=== PATIENT | female | born 1965 | race Caucasian/White ===

== ENCOUNTER 2023-08-20 10:30 | Outpatient (AMB) | payer OTHER, SELFPAY ==
--- NOTE | 2023-08-20 10:31 | MHC.PC.OV ---
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 1. Little interest or pleasure in doing things: not at all 2. Feeling down, depressed, or hopeless: not at all 3. Trouble falling or staying asleep, or sleeping too much: not at all 4. Feeling tired or having little energy: not at all 5. Poor appetite or overeating: not at all 6. Feeling bad about yourself - or that you are a failure or have let yourself or your family down: not at all 7. Trouble concentrating on things, such as reading the newspaper or watching television: not at all 8. Moving or speaking so slowly that other people could have noticed. Or the opposite - being so fidgety or restless that you have been moving around a lot more than usual: not at all 9. Thoughts that you would be better off or of hurting yourself in some way: not at all Total score: 0 Depression Screening Interpretation: Negative Depression Screening Done: Yes 81432 - PHQ-9 Billing: Yes Source: Developed by Drs. Ji Giang, Christin Mueller, Bay Kim and colleagues, with an educational judy from [employer]. Thrive Questionnaire Date Thrive assessed: 08/20/23 I am a: Patient What is your living situation today?: I have a steady place to live Within the past 12 months, did the food you bought not last and you didn't have the money to get more?: Never true Within the past 12 months, did you worry whether your food would run out before you got money to buy more?: Never true Do you have trouble paying for medicines?: No Do you have trouble getting transportation to medical appointments?: No Do you have trouble paying your heating and electricity bill?: No Do you have trouble taking care of your child, family member or friend?: No Do you have trouble with day-to-day activities such as bathing, preparing meals, shopping, managing finances, etc.?: No Are you currently unemployed and looking for a job?: No Are you interested in more education?: No Please select the resources that you would like help with: None Currently or been in a relationship where the following occur: no concerns reported THRIVE Score: 0 AUDIT C Alcohol Use Questionnaire (AUDIT-C) 1. How often do you have a drink containing alcohol?: Monthly or less 2. How many drinks containing alcohol do you have on a typical day when you are drinking?: 1 or 2 3. How often do you have six or more drinks on one occasion?: Never Total Score: 1 SHAUN-7 AMB Questionnaire SHAUN-7 Date SHAUN - 7 assessed: 08/20/23 Feeling nervous, anxious, or on edge: 0 = Not at all Not being able to stop or control worryin = Not at all Worrying too much about different things: 0 = Not at all Trouble relaxin = Not at all Being so restless that it is hard to sit still: 0 = Not at all Becoming easily annoyed or irritable: 0 = Not at all Feeling afraid as if something awful might happen: 0 = Not at all Total SHAUN-7 score (0-4 normal; 5-9 mild; 10-14 moderate; 15-21 severe): 0 Source: Developed by Drs. Ji Giang, Christin Mueller, Bay Kim and colleagues, with an educational judy from [employer]. SHAUN-7 Assessment Billing SHAUN-7 Assessment Tool: SHAUN-7 Assessment 71995 Physical exam (Primary Care) BMI result Body Mass Index 25.1 PHQ-9: PHQ-9 Score PHQ-9: Total score 0 08/20/23 10:52 Depression Screening Interpretation: Negative Thrive Assessment: Date of Thrive Assessment Date Thrive assessed 08/20/23 08/20/23 10:52 Currently or been in a relationship where the following occur: no concerns reported Assessment and Plan Assessment & Plan Orders: Orders MM screening mammo BI Today Z12.31 - Encounter for screening mammogram for malignant neoplasm of breast Coding Additional Codes SHAUN-7 Assessment Billing - SHAUN-7 Assessment Tool: SHAUN-7 Assessment 23217 ([id number])
[2023-08-20 10:44] VITALS: BP 120/78; PULSE 78; O2SAT 99; BMI 25.1
--- NOTE | 2023-08-20 11:01 | A.OFFPC_ITS ---
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 Technician Required: No Accompanied by: Self / Same As Patient Allergies No Known Allergies [No Known Allergies*] Allergy (Verified 08/20/23 11:09) Medication List - Last Reconciled 08/20/23 by Arthur Webster PA-C No Known Home Meds Tobacco use date assessed: 08/20/23 Dental Screening Dental Screen Date: 08/20/23 Did you have a dental visit in the last 12 months?: Yes Did you have a dental problem in the last 6 months where you did not have access to dental care?: No Was dental information given to patient?: Patient has dentist HPI READING PROFESSOR, last seen 2019 [facility] HPI Details Patient is a 58-year-old female here today for a new patient visit. Has not been seen since 2018. She has no significant past medical history. vaccine : needs Tdap. Declines flu vaccine. 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 Mammo: goes to [facility] for her mammo Vaccines: Needs up-to-date Tdap, still considering, declines flu, COVID, shingles at this time. Colonoscopy: Done [id number]. Needs colon cancer screening- she is considering repeat colonoscopy in near future [facility] Family History Father Lymphoma Mother Sepsis Social History (Updated 08/20/23 @ 11:27 by Arthur Webster PA-C) Housing: House Alcohol intake: current Alcohol intake frequency: holidays/special occasions only Patient Tobacco Use Status: Never used Tobacco e-Cigarette/Vaping Use: Never Used service: No Current occupational status: employed Current occupation: [employer] Cognitive needs: No Hearing needs: No Vision needs: No Questionnaire PHQ-9 Over the last 2 weeks, how often have you been bothered by any of the following problems? 1. Little interest or pleasure in doing things: not at all 2. Feeling down, depressed, or hopeless: not at all 3. Trouble falling or staying asleep, or sleeping too much: not at all 4. Feeling tired or having little energy: not at all 5. Poor appetite or overeating: not at all 6. Feeling bad about yourself - or that you are a failure or have let yourself or your family down: not at all 7. Trouble concentrating on things, such as reading the newspaper or watching television: not at all 8. Moving or speaking so slowly that other people could have noticed. Or the opposite - being so fidgety or restless that you have been moving around a lot more than usual: not at all 9. Thoughts that you would be better off or of hurting yourself in some way: not at all Total score: 0 Depression Screening Interpretation: Negative Depression Screening Done: Yes 44735 - PHQ-9 Billing: Yes Source: Developed by Drs. Ji Giang, Christin Mueller, Bay Kim and colleagues, with an educational judy from [employer]. Thrive Questionnaire Date Thrive assessed: 08/20/23 I am a: Patient What is your living situation today?: I have a steady place to live Within the past 12 months, did the food you bought not last and you didn't have the money to get more?: Never true Within the past 12 months, did you worry whether your food would run out before you got money to buy more?: Never true Do you have trouble paying for medicines?: No Do you have trouble getting transportation to medical appointments?: No Do you have trouble paying your heating and electricity bill?: No Do you have trouble taking care of your child, family member or friend?: No Do you have trouble with day-to-day activities such as bathing, preparing meals, shopping, managing finances, etc.?: No Are you currently unemployed and looking for a job?: No Are you interested in more education?: No Please select the resources that you would like help with: None Currently or been in a relationship where the following occur: no concerns reported THRIVE Score: 0 AUDIT C Alcohol Use Questionnaire (AUDIT-C) 1. How often do you have a drink containing alcohol?: Monthly or less 2. How many drinks containing alcohol do you have on a typical day when you are drinking?: 1 or 2 3. How often do you have six or more drinks on one occasion?: Never Total Score: 1 SHAUN-7 AMB Questionnaire SHAUN-7 Date SHAUN - 7 assessed: 08/20/23 Feeling nervous, anxious, or on edge: 0 = Not at all Not being able to stop or control worryin = Not at all Worrying too much about different things: 0 = Not at all Trouble relaxin = Not at all Being so restless that it is hard to sit still: 0 = Not at all Becoming easily annoyed or irritable: 0 = Not at all Feeling afraid as if something awful might happen: 0 = Not at all Total SHAUN-7 score (0-4 normal; 5-9 mild; 10-14 moderate; 15-21 severe): 0 Source: Developed by Drs. Ji Giang, Christin Mueller, Bay Kim and colleagues, with an educational judy from [employer]. SHAUN-7 Assessment Billing SHAUN-7 Assessment Tool: SHAUN-7 Assessment 95210 Review of Systems Const Denies headache(s) Eyes Denies loss of vision ENT Denies vertigo, Denies dizziness, Denies headache(s) and Denies sore throat Card Denies chest pain, Denies leg edema and Denies lightheadedness Resp Denies cough, Denies hemoptysis and Denies wheezing GI Denies abdominal pain, Denies melena, Denies constipation, Denies diarrhea and Denies vomiting Denies urinary frequency, Denies dysuria and Denies urinary urgency Musc Denies arthralgias, Denies joint swelling, Denies numbness and Denies tingling Neuro Denies Abnormal speech present, Denies behavioral changes, Denies vertigo, D enies dizziness, Denies headache(s), Denies loss of vision, Denies memory loss, Denies numbness and Denies tingling Psych Denies anxiety, Denies behavioral changes, Denies depression, Denies memory loss and Denies panic attacks Liam/Lymph Denies easy bleeding and Denies easy bruising Aller/Immun Denies wheezing Physical exam (Primary Care) Vital Signs: Last Vital Signs Pulse 78 08/20/23 10:44 BP 120/78 08/20/23 10:44 Pulse Ox 99 08/20/23 10:44 Oxygen Delivery Method Room Air 08/20/23 10:44 BMI result Body Mass Index 25.1 Tobacco/Smoking Status: Tobacco use Status Tobacco use date assessed 08/20/23 08/20/23 11:06 Patient Tobacco Use Status Never used Tobacco 08/20/23 11:27 e-Cigarette/Vaping Use Never Used 08/20/23 11:27 PHQ-9: PHQ-9 Score PHQ-9: Total score 0 08/20/23 11:11 Depression Screening Interpretation: Negative Thrive Assessment: Date of Thrive Assessment Date Thrive assessed 08/20/23 08/20/23 11:06 Currently or been in a relationship where the following occur: no concerns reported Const General: healthy appearing, no acute distress, alert and awake Nutritional Appearance: well nourished Orientation/consciousness: oriented to person, oriented to place and oriented to time HENMT Ears: TM's normal bilaterally General nose exam: Normal nasal mucous membranes and turbinates present Eyes Conjunctivae: conjunctivae normal Sclerae: sclerae normal Pupils: Equal, round and reactive pupils present Neck Neck: Yes no lymphadenopathy and Yes no JVD Thyroid: Thyroid normal Carotids: no bruits Resp Effort & Inspection: normal respiratory effort and not tachypneic Auscultation: no crackles, no rales, no rhonchi and no wheezes Cardio Rate: regular rate Rhythm: regular rhythm Heart sounds: no murmurs and normal S1 and S2 GI Palpation (GI): Soft to palpation, nontender, no hepatomegaly and no splenomegaly Auscultation: normal bowel sounds Skin General skin exam: no rashes or lesions noted and dry skin Neuro General: oriented to person, oriented to place and oriented to time Cranial nerves: Yes Equal, round and reactive pupils present Speech: No Abnormal speech present Gait exam (Neuro): Normal gait present Motor exam (neuro): no tremor noted Extrem Right upper extremity: full ROM Left upper extremity: full ROM Right lower extremity: full ROM; no edema Left lower extremity: full ROM; no edema Psych Mental Status: mental status grossly normal Speech and movement: Normal speech and movement present Affect: normal affect Attitude: cooperative Thought process: Normal thought process present Assessment and Plan Assessment & Plan (1) Cervical cancer screening: Code(s): Z12.4 - Encounter for screening for malignant neoplasm of cervix Plan: Would like to establish care with [place] head track coach for Pap screening. Did have Pap recently at [facility]. Will try to get records. (2) Screening for diabetes mellitus (DM): Code(s): Z13.1 - Encounter for screening for diabetes mellitus (3) Breast cancer screening: Code(s): Z12.39 - Encounter for other screening for malignant neoplasm of breast Qualifiers: Breast cancer screening modality: mammogram Qualified Code(s): Z12.31 - Encounter for screening mammogram for malignant neoplasm of breast (4) Anemia: Code(s): D64.9 - Anemia, unspecified Qualifiers: Anemia type: iron deficiency Iron deficiency anemia type: unspecified iron deficiency Qualified Code(s): D50.9 - Iron deficiency anemia, unspecified Plan: Has a history of anemia per records in 2018. She attributes this to menstrual bleeding. As of 5 years ago she reports she is stopped getting her menstrual periods. Orders: Orders MM screening mammo BI Today Z12.31 - Encounter for screening mammogram for malignant neoplasm of breast Comprehensive [place]. 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
== END 2023-08-20 11:39 | disposition home or self-care (01) ==
PROVIDERS: PCP Physician Assistant; Visit Provider Physician Assistant
DX: Z12.4 Encounter for screening for malignant neoplasm of cervix (principal); Z13.1 Encounter for screening for diabetes mellitus; Z12.31 Encounter for screening mammogram for malignant neoplasm of breast; D50.9 Iron deficiency anemia, unspecified
CPT/HCPCS: 99204

== ENCOUNTER 2023-08-20 12:03 | Outpatient (REF) | payer OTHER, SELFPAY ==
[2023-08-20 13:56] LABS: Hematocrit 41.7 % (37.0-47.0); Hemoglobin 14.3 g/dl (12.0-16.0); Mean Corpuscular HGB Conc 34.3 g/dl (31.0-35.0); Mean Corpuscular Hemoglobin 33.9 pg (27.0-33.0); Mean Corpuscular Volume 98.8 fL (80.0-98.0); Mean Platelet Volume 8.6 fL (9.4-12.3); Platelet Count 205 X10*3/uL (160-400); Red Blood Count 4.22 X10*6/uL (4.20-5.50); Red Cell Distribution Width 12.2 % (11.0-16.0); White Blood Count 5.8 X10*3/uL (4.8-10.8)
[2023-08-20 14:16] LABS: Alanine Aminotransferase 11 U/L (0-31); Albumin Level 4.5 g/dL (3.5-5.0); Alkaline Phosphatase 58 U/L (39-117); Anion Gap 14 (12-20); Aspartate Amino Transferase 20 U/L (5-31); Bilirubin Total 0.8 mg/dL (0.0-1.0); Blood Urea Nitrogen 15 mg/dL (9-16); Calcium 9.2 mg/dL (8.4-10.2); Carbon Dioxide 21 mmol/L (22-29); Chloride 109 mmol/L (96-108); Estimated Glomerular Filt Rate 51; Glucose Fasting 99 mg/dL (60-99); Potassium 3.8 mmol/L (3.3-5.1); Sodium 140 mmol/L (135-145); Total Protein 7.2 g/dL (6.5-8.0)
== END 2023-08-20 12:04 | disposition home or self-care (01) ==
LOC: HO.10HDL 12:03
PROVIDERS: Visit Provider Physician Assistant
DX: Z13.1 Encounter for screening for diabetes mellitus (principal); D64.9 Anemia, unspecified
CPT/HCPCS: 36415; 80053; 85027

== ENCOUNTER 2024-11-08 09:10 | Outpatient (REF) | payer BC, SELFPAY ==
--- NOTE | ~2024-11-08 | XR_ITS ---
EXAMINATION: XR FOOT, RIGHT CLINICAL INFORMATION: M79.671 - Pain in right foot COMPARISON: None available. TECHNIQUE: AP, lateral, and oblique views of the right foot. FINDINGS: Mild osseous demineralization. No fracture, dislocation, or suspicious bone lesion. Mild to moderate degenerative arthritis at the first MTP joint. Joint spaces otherwise preserved. Normal plantar arch. The midfoot and hindfoot image normally. There is no soft tissue abnormality. XR/XR foot RT min 3V IMPRESSION: No acute bony abnormalities of the right foot. 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 Electronically signed by: Vamshi Ellsworth MD 11/08/2024 10:21 AM EDT
== END 2024-11-08 09:11 | disposition home or self-care (01) ==
LOC: HO.HMGCX 09:10
PROVIDERS: PCP Physician Assistant; Visit Provider Physician Assistant Medical
DX: S96.911A Strain of unspecified muscle and tendon at ankle and foot level, right foot, initial encounter (principal); M79.671 Pain in right foot; X50.9XXA Other and unspecified overexertion or strenuous movements or postures, initial encounter
CPT/HCPCS: 73630

== ENCOUNTER 2024-11-08 09:10 | Outpatient (AMB) | payer BC, SELFPAY ==
[2024-11-08 09:19] VITALS: BP 138/84; PULSE 86; TEMP 36.5; O2SAT 98; BMI 23.4
--- NOTE | 2024-11-08 09:19 | AM.OFFWIN_ITS ---
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 - The injury occurred when the patient t wisted the top of her foot while taking out the trash at approximately 7:45 AM today. - She was wearing sneakers and tripped o n the untied laces twisting her right foot outward. - She had then gone to work but had pain with weight bearing. - The patient reported soreness and took three ibuprofen tablets for pain relief. - There was no numbness or tingling repo rted, and the ankle was not painful upon palpation. - She had not fall. - She denies numbness, tingling, ankle p ain, calf pain, or knee pain. Physical Exam General: Cooperative, healthy appearing, comfortable, no acute distress and well developed Orientation: Patient oriented x3 Limitations: Sore foot, slight hobbling Respiratory: Normal respiratory effort and able to speak in complete sentences. Clear to auscultation bilaterally Cardiovascular: Regular rate and rhythm. Normal S1 and S2. Pulses are 2+ on the LE bilaterally. Skin: Bruising noted on the top of the foot on the right lateral side. Neuro: Sensation intact. Extremities: Swelling to the right foot. 5th toe is swollen and bruised. TTP of the right 5th toe. Pain with flexion and extension of the 5th toe. Ambulates with a limp. Strength is 5/5 on the UE bilaterally. FROM of the ankle. Patient was informed and verbally consented to the use of an ambient scribe for clinic note documentation during this visit. [facility] Family History Father Lymphoma Mother Sepsis Social History (Updated 08/20/23 @ 11:27 by Arthur Webster PA-C) Housing: House Alcohol intake: current Alcohol intake frequency: holidays/special occasions only Patient Tobacco Use Status: Never used Tobacco e-Cigarette/Vaping Use: Never Used Patient : No service: No Current occupational status: employed Current occupation: [employer] Cognitive needs: No Hearing needs: No Vision needs: No Review of Systems Const All systems reviewed & are unremarkable except as noted in HPI and below Physical Exam Vital Signs: Last Vital Signs Temp 97.7 F 11/08/24 09:19 Pulse 86 11/08/24 09:19 BP 138/84 11/08/24 09:19 Pulse Ox 98 11/08/24 09:19 Oxygen Delivery Method Room Air 11/08/24 09:19 BMI result Body Mass Index 23.4 Results Reviewed Results Reviewed: Xray was reviewed in the office and negative Assessment & Plan Assessment & Plan (1) Right foot strain: Code(s): S96.911A - Strain of unspecified muscle and tendon at ankle and foot level, right foot, initial encounter Qualifiers: Encounter type: initial encounter Qualified Code(s): S96.911A - Strain of unspecified muscle and tendon at ankle and foot level, right foot, initial encounter Plan Most likely strain vs fracture vs contusion Plan - An x-ray of the foot was recommended to rule out any fractures. - The patient was advised to wear a supportive shoe to aid in recovery - rest, ice and elevation to the right foot - tylenol or motrin as needed - follow up as needed if pain does not resolve. Orders: Orders XR foot RT min 3V Today M79.671 - Pain in right foot Coding Level of Care Code Est Pt Level 4 (44841) Diagnoses Strain of right foot, initial encounter S96.911A Encounter type: initial encounter
--- OUTSIDE RECORDS SUMMARY | 2024-11-08 10:08 | XMS_ITS | Patient Health Record ---
Author Organization [facility] Address [address] [place] [address] Care Team Providers Care Endoscopy Technican Name Role Phone Zaina(inactive) Gui ARCE Primary Care Provider [facility] Sharma Ji Unavailable [phone] Reason For Referral No Information Medications Medication SIG (Take, Route, Fr equency, Duration) Notes Start Date End Date Status Eye Support Orally Active CoQ-10 Active MoviPrep 100 GM as directed Orally a s directed for 1 dose 09/15/2013 Active Calcium 1 tab Oral Active Problems Problem Type SNOMED Code ICD Code Onset Dates Problem Status W/U Status Risk Notes Problem Pre-surgery evaluation ([id number]) Other specified pre-operative examination (V72.83) Active confirmed Problem Screening for colorectal cancer (V76.51) Active confirmed Plan Of Treatment Future Test Test Name Order Date COLONOSCOPY 09/15/2013 Insurance Providers Payer Name Payer Address Payer Phone Subscriber Number Group Number Insured Name Patient Relationship to Insured Coverage Start Date Coverage End Date [facility] [employer]S [address] [place] [address] [phone] [id number] DARRIN REESE Self - patient is the insured Medical (General) History Medical History History ICD Code Denies SD,DM,CVA,Lung disease,renal dise ase
== END 2024-11-08 10:43 | disposition home or self-care (01) ==
PROVIDERS: PCP Physician Assistant; Visit Provider Physician Assistant Medical
DX: S96.911A Strain of unspecified muscle and tendon at ankle and foot level, right foot, initial encounter (principal)

== ENCOUNTER → 2024-11-08 10:08 | Outpatient (BNV) | payer BC, SELFPAY | PROVIDERS: PCP Physician Assistant; Visit Provider Radiology Diagnostic Radiology | DX: M19.071 Primary osteoarthritis, right ankle and foot (principal) | CPT/HCPCS: 73630 ==

== ENCOUNTER 2024-12-01 08:58 | Outpatient (AMB) | payer BC, SELFPAY ==
--- NOTE | 2024-12-01 09:02 | A.OFFVIS_ITS ---
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 System Operator: System Operator Present (Regina) Accompanied by: Self / Same As Patient Allergies No Known Allergies (No Known Allergies*) Allergy (Verified 12/01/24 09:13) Is last menstrual period known: No Post menopausal: Yes Patient : No HPI Comments Details: Presenting for annual exam. No complaints. Last Pap/HPV was in 08/12 at [facility] showed ASCUS can not exclude high-grade MARLENE, no records available for biopsy or follow-up co testing since then 08/10 co testing is negative Last Mammogram was in 11/13 BI-RADS 1 Last Colonoscopy was in 01/03 , the recommendation was to repeat in 10 years [facility] Family History Father Lymphoma Mother Sepsis Social History Housing: House Alcohol intake: current Alcohol intake frequency: holidays/special occasions only Patient Tobacco Use Status: Never used Tobacco e-Cigarette/Vaping Use: Never Used Patient : No service: No Current occupational status: employed Current occupation: [employer] Cognitive needs: No Hearing needs: No Vision needs: No Female Reproductive History Menstrual Age of Menarche: 11 Menopause type: natural Total pregnancies: 2 Full term: 2 Date of last pap smear: 07/31/20 (negative pap smear, negative hpv ) History of abnormal pap smear: No Date of Mammogram: 11/14/23 ([facility] RAD 1) History of abnormal mammogram: No Physical Exam Vital Signs: Last Vital Signs BP 110/70 12/01/24 09:14 BMI result Body Mass Index 23.2 Assessment & Plan Assessment & Plan (1) Well woman exam: Comment: History of ASCUS can not exclude HGSIL in 08/12 no records available after Code(s): Z01.419 - Encounter for gynecological examination (general) (routine) without abnormal findings Category: Medical Plan: Co testing done. Counseled the patient about the recommended dietary allowance of 1200 mg of Calcium & 600 IU of vitamin D. Mammogram ordered. The patient was counseled regarding referral to GI for screening colonoscopy, would like to think about it and get back to me . The patient was instructed to perform monthly self-breast exams and schedule annual exam in a year. All questions answered and the patient verbalized understanding. Orders: Orders Pap Smear Today Z01.419 - Encounter for gynecological examination (general) (routine) without abnormal findings HPV High risk Today Z01.419 - Encounter for gynecological examination (general) (routine) without abnormal findings Coding Level of Care Code New Pt Prev Care 40-64y(80817) Diagnoses Well woman exam Z01.419
[2024-12-01 09:14] VITALS: BP 110/70; BMI 23.2
--- OUTSIDE RECORDS SUMMARY | 2024-12-01 10:09 | XMS_ITS | Patient Health Record ---
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 Name Role Phone Zaina(inactive) Gui ARCE Primary Care Provider [facility] pres[facility] Sharma Ji Unavailable [phone] Reason For Referral No Information Medications Medication SIG (Take, Route, Fr equency, Duration) Notes Start Date End Date Status Eye Support Orally Active CoQ-10 Active MoviPrep 100 GM as directed Orally a s directed for 1 dose 09/15/2013 Active Calcium 1 tab Oral Active Problems Problem Type SNOMED Code ICD Code Onset Dates Problem Status W/U Status Risk Notes Problem Pre-surgery evaluation (450767836) Other specified pre-operative examination (V72.83) Active confirmed Problem Screening for malignant neoplasm of colon (629285727) Screening for colorectal cancer (V76.51) Active confirmed Plan Of Treatment Future Test Test Name Order Date COLONOSCOPY 09/15/2013 Insurance Providers Payer Name Payer Address Payer Phone Subscriber Number Group Number Insured Name Patient Relationship to Insured Coverage Start Date Coverage End Date [facility] [employer] CLAIMS [address] [place] [address] [id number] DARRIN REESE Self - patient is the insured Medical (General) History Medical History History ICD Code Denies SD,DM,CVA,Lung disease,renal dise ase
== END 2024-12-01 09:38 | disposition home or self-care (01) ==
LOC: HO.HWS 08:58
PROVIDERS: PCP Physician Assistant; Visit Provider Obstetrics & Gynecology
DX: Z01.419 Encounter for gynecological examination (general) (routine) without abnormal findings (principal)
CPT/HCPCS: 99386; 99459

== ENCOUNTER 2024-12-01 08:58 | Outpatient (REF) | payer BC, SELFPAY | END 2024-12-01 08:59 | disposition home or self-care (01) | LOC: HO.LNP 08:58 | PROVIDERS: PCP Physician Assistant; Visit Provider Obstetrics & Gynecology | DX: Z01.419 Encounter for gynecological examination (general) (routine) without abnormal findings (principal) | CPT/HCPCS: 87626; 88175 ==